=== PATIENT | female | born 1930 | race African-American/Black ===

== ENCOUNTER 2017-08-05 15:02 | Inpatient (IN) | payer MEDICARE, OTHER ==
[~2017-08-05] VITALS: Ht 160 cm; Wt 57.2 kg
[2017-08-05] VITALS (10 sets, daily range): BP systolic 130–156; BP diastolic 42–65
[2017-08-05] MEDS ORDERED: ATEN-42 PO (15:20)
[2017-08-05] MEDS ORDERED: FURO20TA4 PO (15:20)
[2017-08-05] MEDS ORDERED: POTA-81 PO (15:20)
[2017-08-05] MEDS ORDERED: PEROXETINE (15:20)
[2017-08-05] MEDS ORDERED: SODIUM CHLORIDE 0.9% 1,000 ML IV ONE (15:56)
[2017-08-05] MEDS ORDERED: NICARDIPINE 40MG/200ML PREMIX 200 ML IV SCH (16:45)
[2017-08-05 16:55] LABS: BASOPHILS % 0.2 % (0.0-2.0); HEMATOCRIT. 34.5 % (36.0-48.0); HEMOGLOBIN. 11.7 g/dL (12.0-16.0); LYMPHOCYTES % 9.5 % (20.0-50.0); MEAN CORPUSCULAR VOLUME 88.2 fL (81.0-99.0); MEAN PLATELET VOLUME 7.2 fl (7.4-10.4); MONOCYTES % 4.4 % (2.0-8.0); NEUTROPHILS % 85.9 % (40.0-76.0); PLATELET 162 x1000/uL (130-400); RED BLOOD CELL COUNT 3.91 mill/uL (4.2-5.4); RED CELL DISTRIBUTION WIDTH 14.4 % (11.6-14.6)
[2017-08-05 16:58] LABS: CHLORIDE 100 mEq/L (98-107)
[2017-08-05 17:00] LABS: PROTHROMBIN TIME 10.9 sec (9.4-11.6)
[2017-08-05 17:02] LABS: CARBON DIOXIDE 28 mEq/L (21-32); ETHANOL BLOOD < 10 mg/dL
[2017-08-05 17:21] LABS: CLARITY URINE CLEAR (CLEAR); COLOR URINE YELLOW (YELLOW); GLUCOSE URINE NEGATIVE (NEGATIVE); KETONES URINE NEGATIVE (NEGATIVE); LEUKOCYTE ESTERASE URINE NEGATIVE (NEGATIVE); NITRITE URINE NEGATIVE (NEGATIVE); OCCULT BLOOD URINE TRACE (NEGATIVE); PH URINE 8.5 (4.5-8.0); PROTEIN URINE 3+ (NEGATIVE); SPECIFIC GRAVITY URINE 1.012 (1.005-1.030); UROBILINOGEN URINE 0.2 E.U./dL (0.2-1.0)
[2017-08-05 17:48] LABS: *AMPHETAMINES SCREEN URINE NEGATIVE (NEGATIVE); *BARBITURATES SCREEN URINE NEGATIVE (NEGATIVE); *BENZODIAZEPINES SCREEN URINE NEGATIVE (NEGATIVE); *COCAINE SCREEN URINE NEGATIVE (NEGATIVE); CANNABINOID URINE SCREEN NEGATIVE (NEGATIVE); METHADONE URINE SCREEN NEGATIVE (NEGATIVE); OPIATES URINE SCREEN NEGATIVE (NEGATIVE); PHENCYCLIDINE URINE SCREEN NEGATIVE (NEGATIVE)
[2017-08-05] MEDS ORDERED: NICARDIPINE 50 MG in SODIUM CHLORIDE 0.9% 230 ML IV PRN (19:00)
[2017-08-05] MEDS: PHENYTOIN SODIUM 100MG/2ML VIAL IV SCH (21:47)
[2017-08-05] MEDS: DEXT 5%/LACTATED RINGERS 1,000 ML IV SCH (21:48)
[2017-08-05] MEDS ORDERED: PHENYTOIN SODIUM 100MG/2ML VIAL IV SCH (22:00)
[2017-08-05] MEDS: NICARDIPINE 100 MG in SODIUM CHLORIDE 0.9% 60 ML IV PRN (22:29)
[2017-08-05] MEDS ORDERED: POTASSIUM CHLORIDE INJ 20 MEQ in DEXT 5% WATER 250 ML IV SCH (23:00)
[2017-08-05] MEDS ORDERED: PHENYTOIN SODIUM 100 MG in SODIUM CHLORIDE 0.9% 100 ML IV SCH (23:00)
[2017-08-05] MEDS: DEXAMETHASONE 4MG/ML 1ML VIAL IV SCH (23:54)
[2017-08-06] VITALS (84 sets, daily range): BP systolic 123–162; BP diastolic 42–107
[2017-08-06] MEDS: DEXAMETHASONE 4MG/ML 1ML VIAL IV SCH ×3 (05:11→17:05)
[2017-08-06] MEDS: PHENYTOIN SODIUM 100MG/2ML VIAL IV SCH ×2 (05:11→13:49)
[2017-08-06 06:12] LABS: HEMATOCRIT 35.1 % (36.0-48.0); HEMOGLOBIN 11.9 g/dL (12.0-16.0); MEAN CORPUSCULAR HEMOGLOBIN 29.9 pg (28.0-32.0); MEAN CORPUSCULAR VOLUME 88.5 fL (81.0-99.0); PLATELET 142 x1000/uL (130-400); RED BLOOD CELL COUNT 3.96 mill/uL (4.2-5.4); RED CELL DISTRIBUTION WIDTH 14.3 % (11.6-14.6)
[2017-08-06 06:31] LABS: CHLORIDE 99 mEq/L (98-107)
[2017-08-06 06:39] LABS: CARBON DIOXIDE 27 mEq/L (21-32)
[2017-08-06] MEDS: DEXT 5%/LACTATED RINGERS 1,000 ML IV SCH (12:41)
[2017-08-06] MEDS ORDERED: GADOBENATE DIMEGLUMINE 529 MG/ML 10ML IV ONE (14:40)
[2017-08-06] MEDS ORDERED: PHENYTOIN SODIUM 500 MG in SODIUM CHLORIDE 0.9% 50 ML IV NR (20:00)
[2017-08-06] MEDS: PHENYTOIN SODIUM EXTENDED 100MG CAPSULE PO SCH (22:49)
[2017-08-07] VITALS (61 sets, daily range): BP systolic 125–168; BP diastolic 33–97
[2017-08-07] MEDS: DEXAMETHASONE 4MG/ML 1ML VIAL IV SCH ×4 (00:10→18:18)
[2017-08-07] MEDS: PHENYTOIN SODIUM EXTENDED 100MG CAPSULE PO SCH ×3 (05:51→21:09)
[2017-08-07 05:58] LABS: BASOPHILS % 0.1 % (0.0-2.0); HEMATOCRIT. 35.7 % (36.0-48.0); HEMOGLOBIN. 11.8 g/dL (12.0-16.0); MEAN CORPUSCULAR HEMOGLOBIN 29.8 pg (28.0-32.0); MEAN CORPUSCULAR VOLUME 89.8 fL (81.0-99.0); MEAN PLATELET VOLUME 7.8 fl (7.4-10.4); NEUTROPHILS % 84.9 % (40.0-76.0); PLATELET 131 x1000/uL (130-400); RED BLOOD CELL COUNT 3.97 mill/uL (4.2-5.4); RED CELL DISTRIBUTION WIDTH 14.9 % (11.6-14.6)
[2017-08-07 06:43] LABS: CARBON DIOXIDE 30 mEq/L (21-32); CHLORIDE 101 mEq/L (98-107)
[2017-08-07] MEDS: DEXT 5%/LACTATED RINGERS 1,000 ML IV SCH (07:01)
[2017-08-07] MEDS ORDERED: POTASSIUM CHLORIDE 20MEQ TABLET SR PO SCH (07:15)
[2017-08-07] MEDS ORDERED: MAGNESIUM 1 G PREMIX 100 ML IV SCH (07:15)
[2017-08-07] MEDS ORDERED: ACETAMINOPHEN 325MG TABLET PO PRN (12:15)
[2017-08-07] MEDS: NICARDIPINE 100 MG in SODIUM CHLORIDE 0.9% 60 ML IV PRN (20:28)
== END 2017-08-07 22:30 | disposition short-term general hospital (02) | DRG 64 ==
LOC: ER 15:30 → MICUSO 17:19 → ENRESERV 21:06
PROVIDERS: ADMIT Internal Medicine; ATTEND Internal Medicine
DX: I60.9 Nontraumatic subarachnoid hemorrhage, unspecified (principal); G93.40 Encephalopathy, unspecified; C50.912 Malignant neoplasm of unspecified site of left female breast; I10 Essential (primary) hypertension; I61.1 Nontraumatic intracerebral hemorrhage in hemisphere, cortical; I61.5 Nontraumatic intracerebral hemorrhage, intraventricular; E87.6 Hypokalemia; E78.00 Pure hypercholesterolemia, unspecified; Z90.12 Acquired absence of left breast and nipple; Z90.710 Acquired absence of both cervix and uterus; Z92.21 Personal history of antineoplastic chemotherapy; Z79.899 Other long term (current) drug therapy
CPT/HCPCS: 36415; 70450; 70553; 71010; 80048; 80053; 80185; 80305; 81001; 83690; 83721; 83735; 85025; 85027; 85610; 85730; 93005; 93970; 99285; A6261; A9577; G0482; J1100; J1165; J3475; J3480; J3490; J7030; J7050; J7060; A4315